=== PATIENT | female | born 1980 | race Caucasian/White ===

== ENCOUNTER → 2020-02-17 | Outpatient (CLI) | payer BC ==
[~2020-02-17] MED LIST: [UNRECOGNIZED DRUG - OTHER]
--- NOTE | 2020-02-17 14:22 | Diagnostic Imaging Report ---
EXAMINATION: Head CT HISTORY: 39-year-old female with headache for the last 4 months COMPARISON: None. TECHNIQUE: Helical axial images of the head were obtained. Dose modulation, iterative reconstruction, and/or weight based adjustment of the mA/kV was utilized to reduce the radiation dose to as low as reasonably achievable. FINDINGS: Parenchyma: 1. No abnormal densities. 2. No mass or hemorrhage. No CT evidence of acute territorial vascular insult. Extra-axial spaces:No abnormal density. No extra-axial fluid collections Brain volume: Normal for age. Ventricles: No hydrocephalus or displacement. Arteries: No density suggestive of thrombus. Dural sinuses: No abnormal density. Foramen magnum: No mass, Chiari malformation, or basilar invagination. Sella: No obvious mass. Paranasal/mastoid sinuses: Imaged portions unremarkable. Skull/Scalp: No lytic or blastic lesions. No fractures. IMPRESSION: Normal head CT. Signed by: Dr. Sarah Clemente M.D. on 02/17/2020 2:19 PM
== END ==
LOC: CT 13:40
PROVIDERS: ATTEND Family Medicine
DX: R51 Headache (principal); R11.0 Nausea
CPT/HCPCS: 70450